=== PATIENT | female | born 1960 | race Caucasian/White ===

== ENCOUNTER 2021-09-29 00:23 | Inpatient (IN) ==
[2021-09-29] MEDS ORDERED: Naloxone 0.4 MG/ML INJ IVP PRN (07:27)
[2021-09-29 08:13] LABS: Nucleated Red Blood Cells 1.5 /100 WBC (0)
[2021-09-29 08:15] LABS: Hematocrit 24.2 % (35.3-44.9); Hemoglobin 7.8 g/dL (11.5-15.4); Mean Corpuscular HGB Conc 32.2 g/dL (31.6-35.5); Mean Corpuscular Hemoglobin 28.4 pg (28.0-33.3); Neutrophils # 0.3 K/mcL (1.6-8.9); Platelet Count 176 K/mcL (140-400); Red Blood Count 2.75 M/mcL (3.82-4.97); Red Cell Distribution Width 15.3 % (11.5-14.5); White Blood Count 1.4 K/mcL (4.3-11.1)
[2021-09-29 08:35] LABS: Alanine Aminotransferase 33 Units/L (7-52); Albumin 3.4 g/dL (3.5-5.7); Albumin/Globulin Ratio 1.2 (1.1-2.2); Alkaline Phosphatase 128 Units/L (34-104); Aspartate Amino Transferase 23 Units/L (13-39); BUN/Creatinine Ratio 10 (6-26); Bilirubin,Total 0.5 mg/dL (0.3-1.0); Blood Urea Nitrogen 7 mg/dL (8-23); Calcium 8.8 mg/dL (8.6-10.3); Carbon Dioxide 27 mEq/L (23-29); Chloride 101 mEq/L (98-107); Globulin 2.9 g/dL (2.4-3.5); Glucose 111 mg/dL (70-105); Magnesium 2.3 mg/dL (1.6-2.6); Osmolality,Calculated 281 (280-300); Phosphorous 2.4 mg/dL (2.7-4.5); Potassium 3.5 mEq/L (3.5-5.1); Sodium 136 mEq/L (136-145); Total Protein 6.3 g/dL (6.4-8.9); eGFR For African Americans > 60 (> 60); eGFR For Non-African Americans > 60 (> 60)
[2021-09-29 08:42] LABS: Eosinophils # 0.2 K/mcL (0.0-0.6); Lymphocytes # 0.5 K/mcL (0.6-4.6); Monocytes # 0.5 K/mcL (0.0-1.3)
[2021-09-29 08:43] LABS: Anisocytosis 1+ (Not Present); Platelet Estimate Normal (Normal)
[2021-09-29 08:44] LABS: Hypochromasia Present (Not Present)
[2021-09-29] MEDS: Cefepime HCl 1,000 MG in 0.9 % Sodium Chloride 10 ML IVP SCH ×3 (11:34→23:22)
[2021-09-29] MEDS: Budesonide/Formoterol 160/4.5 1 PUFF INH IH SCH ×2 (15:12→20:11)
[2021-09-29] MEDS: Ipratropium/Albuterol Neb 3 ML IH PRN (15:16)
[2021-09-29] MEDS ORDERED: Ondansetron ODT 4 MG TAB.RAPDIS PO PRN (18:22)
[2021-09-30] MEDS: *HR* Enoxaparin 40 MG/0.4 ML SYRINGE SQ SCH (05:29)
[2021-09-30 06:19] LABS: Bacteria,Urine Few per hpf (None-Few); Bilirubin,Urine Negative (Negative); Blood,Urine Negative (Negative); Clarity,Urine Clear (Clear); Color,Urine Yellow (Yellow); Glucose,Urine (UA) Normal (Normal); Ketones,Urine Trace mg/dL (Negative); Leukocyte Esterase,Urine Negative (Negative); Mucus,Urine Few per lpf (None-Few); Nitrite,Urine Negative (Negative); PH,Urine 6.5 pH Units (5.0-8.0); Protein,Urine 30 mg/dL (Neg-Trace); RBC,Urine 0-3 per hpf (0-3); Specific Gravity,Urine 1.017 (1.010-1.025); Squamous Epithelial Cell,Urine Few per hpf (None-Few); Urobilinogen,Urine Normal (Normal)
[2021-09-30] MEDS: Budesonide/Formoterol 160/4.5 1 PUFF INH IH SCH ×2 (07:54→19:55)
[2021-09-30] MEDS: Ipratropium/Albuterol Neb 3 ML IH PRN (07:55)
[2021-09-30] MEDS: allopurinoL 300 MG TABLET PO SCH (08:16)
[2021-09-30] MEDS: Cefepime HCl 1,000 MG in 0.9 % Sodium Chloride 10 ML IVP SCH (08:16)
[2021-09-30] MEDS ORDERED: Isovue-370 500 ML BOTTLE IVP ONE (08:23)
[2021-09-30 08:36] LABS: Basophils # 0.1 K/mcL (0.0-0.2); Hematocrit 25.6 % (35.3-44.9); Hemoglobin 8.2 g/dL (11.5-15.4); Mean Corpuscular Hemoglobin 28.5 pg (28.0-33.3); Mean Corpuscular Volume 88.9 fL (83.0-100.0); Mean Platelet Volume 11.5 fL (9.4-12.4); Nucleated Red Blood Cells 0.7 /100 WBC (0); Platelet Count 276 K/mcL (140-400); Red Blood Count 2.88 M/mcL (3.82-4.97); Red Cell Distribution Width 15.8 % (11.5-14.5)
[2021-09-30 08:38] LABS: White Blood Count 10.7 K/mcL (4.3-11.1)
[2021-09-30 08:55] LABS: BUN/Creatinine Ratio 13 (6-26); Blood Urea Nitrogen 10 mg/dL (8-23); Calcium 9.1 mg/dL (8.6-10.3); Carbon Dioxide 28 mEq/L (23-29); Chloride 99 mEq/L (98-107); Glucose 103 mg/dL (70-105); Osmolality,Calculated 279 (280-300); Potassium 3.4 mEq/L (3.5-5.1); Sodium 135 mEq/L (136-145); eGFR For African Americans > 60 (> 60); eGFR For Non-African Americans > 60 (> 60)
[2021-09-30 09:00] LABS: Eosinophils # 0.1 K/mcL (0.0-0.6); Lymphocytes # 0.9 K/mcL (0.6-4.6); Neutrophils # 8.2 K/mcL (1.6-8.9); Platelet Estimate Normal (Normal); Toxic Granulation Present (Not Present)
[2021-09-30] MEDS ORDERED: amLODIPine 5 MG TABLET PO SCH (09:00)
[2021-09-30] MEDS ORDERED: Cefepime HCl 1,000 MG in 0.9 % Sodium Chloride 10 ML IVP ONE (09:30)
[2021-09-30] MEDS: Cefepime HCl 2,000 MG in 0.9 % Sodium Chloride 10 ML IVP SCH ×2 (16:33→23:41)
[2021-10-01 03:15] LABS: Hematocrit 24.1 % (35.3-44.9); Hemoglobin 7.7 g/dL (11.5-15.4); Mean Corpuscular Hemoglobin 28.9 pg (28.0-33.3); Mean Corpuscular Volume 90.6 fL (83.0-100.0); Mean Platelet Volume 11.2 fL (9.4-12.4); Nucleated Red Blood Cells 1.1 /100 WBC (0); Platelet Count 329 K/mcL (140-400); Red Blood Count 2.66 M/mcL (3.82-4.97); Red Cell Distribution Width 16.2 % (11.5-14.5)
[2021-10-01 03:20] LABS: White Blood Count 17.8 K/mcL (4.3-11.1)
[2021-10-01 03:25] LABS: BUN/Creatinine Ratio 14 (6-26); Blood Urea Nitrogen 11 mg/dL (8-23); Calcium 8.9 mg/dL (8.6-10.3); Carbon Dioxide 27 mEq/L (23-29); Chloride 103 mEq/L (98-107); Glucose 113 mg/dL (70-105); Osmolality,Calculated 286 (280-300); Potassium 3.6 mEq/L (3.5-5.1); Sodium 138 mEq/L (136-145); eGFR For African Americans > 60 (> 60); eGFR For Non-African Americans > 60 (> 60)
[2021-10-01 04:08] LABS: Eosinophils # 0.4 K/mcL (0.0-0.6); Lymphocytes # 1.4 K/mcL (0.6-4.6); Monocytes # 1.4 K/mcL (0.0-1.3); Neutrophils # 14.6 K/mcL (1.6-8.9); Platelet Estimate Normal (Normal)
[2021-10-01] MEDS: *HR* Enoxaparin 40 MG/0.4 ML SYRINGE SQ SCH (04:58)
[2021-10-01] MEDS ORDERED: Acetaminophen 325 MG TABLET PO ONE (05:04)
[2021-10-01] MEDS: allopurinoL 300 MG TABLET PO SCH (08:33)
[2021-10-01] MEDS: Cefepime HCl 2,000 MG in 0.9 % Sodium Chloride 10 ML IVP SCH ×2 (08:33→16:26)
[2021-10-01] MEDS: Budesonide/Formoterol 160/4.5 1 PUFF INH IH SCH ×2 (10:14→19:36)
[2021-10-01] MEDS: Ipratropium/Albuterol Neb 3 ML IH PRN (19:35)
[2021-10-02] MEDS: Cefepime HCl 2,000 MG in 0.9 % Sodium Chloride 10 ML IVP SCH ×2 (00:05→07:53)
[2021-10-02] MEDS: *HR* Enoxaparin 40 MG/0.4 ML SYRINGE SQ SCH (06:10)
[2021-10-02 07:40] LABS: Hematocrit 23.5 % (35.3-44.9); Hemoglobin 7.3 g/dL (11.5-15.4); Mean Corpuscular HGB Conc 31.1 g/dL (31.6-35.5); Mean Corpuscular Hemoglobin 28.2 pg (28.0-33.3); Mean Corpuscular Volume 90.7 fL (83.0-100.0); Mean Platelet Volume 10.9 fL (9.4-12.4); Nucleated Red Blood Cells 1.4 /100 WBC (0); Platelet Count 390 K/mcL (140-400); Red Blood Count 2.59 M/mcL (3.82-4.97); Red Cell Distribution Width 16.7 % (11.5-14.5); White Blood Count 12.2 K/mcL (4.3-11.1)
[2021-10-02] MEDS: allopurinoL 300 MG TABLET PO SCH (07:54)
[2021-10-02 08:09] LABS: BUN/Creatinine Ratio 16 (6-26); Blood Urea Nitrogen 10 mg/dL (8-23); Calcium 8.6 mg/dL (8.6-10.3); Carbon Dioxide 30 mEq/L (23-29); Chloride 102 mEq/L (98-107); Glucose 91 mg/dL (70-105); Osmolality,Calculated 285 (280-300); Potassium 3.4 mEq/L (3.5-5.1); Sodium 138 mEq/L (136-145); eGFR For African Americans > 60 (> 60); eGFR For Non-African Americans > 60 (> 60)
[2021-10-02 08:36] LABS: Monocytes # 1.5 K/mcL (0.0-1.3); Neutrophils # 9.8 K/mcL (1.6-8.9)
[2021-10-02 08:37] LABS: Hypochromasia Present (Not Present)
[2021-10-02 08:38] LABS: Anisocytosis 1+ (Not Present); Poikilocytosis 1+ (Not Present)
[2021-10-02] MEDS: Budesonide/Formoterol 160/4.5 1 PUFF INH IH SCH (10:50)
[2021-10-02] MEDS: Ipratropium/Albuterol Neb 3 ML IH PRN (10:50)
[2021-10-02] MEDS ORDERED: cefTRIAXone 1,000 MG in 0.9 % Sodium Chloride 10 ML IVP SCH (14:00)
[2021-10-02 19:14] VITALS: BP 110/75; PULSE 112; TEMP 99.2; O2SAT 97
== END 2021-10-02 19:18 | disposition home or self-care (01) | DRG 872 ==
LOC: 3ANU → SUATTDRO 07:11
PROVIDERS: ADMIT Internal Medicine; ATTEND Student in an Organized Health Care Education/Training Program

== ENCOUNTER 2021-10-25 03:08 | Observation (INO) ==
[2021-10-25] MEDS ORDERED: Naloxone 0.4 MG/ML INJ IVP PRN (03:34)
[2021-10-25] MEDS ORDERED: Ondansetron ODT 4 MG TAB.RAPDIS SL PRN (03:34)
[2021-10-25] MEDS ORDERED: Melatonin 3 MG TABLET PO PRN (03:34)
[2021-10-25] MEDS ORDERED: Ipratropium/Albuterol Neb 3 ML IH PRN (03:53)
[2021-10-25] MEDS ORDERED: Albuterol 2.5 MG/3 ML NEBULIZER IH PRN (03:54)
[2021-10-25 07:26] LABS: Hematocrit 22.4 % (35.3-44.9); Hemoglobin 6.7 g/dL (11.5-15.4); Mean Corpuscular HGB Conc 29.9 g/dL (31.6-35.5); Mean Corpuscular Hemoglobin 29.1 pg (28.0-33.3); Mean Platelet Volume 9.9 fL (9.4-12.4); Nucleated Red Blood Cells 0.2 /100 WBC (0); Platelet Count 540 K/mcL (140-400); Red Cell Distribution Width 20.9 % (11.5-14.5)
[2021-10-25 07:44] LABS: Alanine Aminotransferase 20 Units/L (7-52); Albumin 3.5 g/dL (3.5-5.7); Albumin/Globulin Ratio 1.3 (1.1-2.2); Alkaline Phosphatase 89 Units/L (34-104); Aspartate Amino Transferase 14 Units/L (13-39); BUN/Creatinine Ratio 10 (6-26); Bilirubin,Total 0.2 mg/dL (0.3-1.0); Blood Urea Nitrogen 8 mg/dL (8-23); Carbon Dioxide 28 mEq/L (23-29); Chloride 102 mEq/L (98-107); Globulin 2.7 g/dL (2.4-3.5); Glucose 221 mg/dL (70-105); Osmolality,Calculated 291 (280-300); Potassium 4.3 mEq/L (3.5-5.1); Sodium 138 mEq/L (136-145); Total Protein 6.2 g/dL (6.4-8.9); eGFR For African Americans > 60 (> 60); eGFR For Non-African Americans > 60 (> 60)
[2021-10-25 07:45] LABS: Mean Corpuscular Volume 97.4 fL (83.0-100.0)
[2021-10-25] MEDS: predniSONE 20 MG TABLET PO SCH (09:42)
[2021-10-25 10:01] LABS: Anisocytosis 2+ (Not Present); Lymphocytes # 0.3 K/mcL (0.6-4.6); Macrocytosis Present (Not Present); Neutrophils # 12.7 K/mcL (1.6-8.9)
[2021-10-25 10:02] LABS: Large Platelets Present (Not Present); Poikilocytosis 1+ (Not Present); Polychromasia 1+ (Not Present)
[2021-10-25] MEDS ORDERED: *HR* Enoxaparin 40 MG/0.4 ML SYRINGE SQ ONE (11:00)
[2021-10-25 11:16] LABS: Hematocrit 22.3 % (35.3-44.9); Hemoglobin 6.8 g/dL (11.5-15.4)
[2021-10-25 11:27] LABS: INR 1.2; Prothrombin Time 13.3 Seconds (9.4-12.1)
[2021-10-25] MEDS ORDERED: 0.9 % Sodium Chloride 500 ML ONE (12:38)
[2021-10-25] MEDS: Budesonide/Formoterol 160/4.5 1 PUFF INH IH SCH (20:32)
[2021-10-25] MEDS: Acyclovir 200 MG CAPSULE PO SCH (21:50)
[2021-10-26 05:58] LABS: Hematocrit 27.3 % (35.3-44.9); Mean Corpuscular HGB Conc 31.5 g/dL (31.6-35.5); Mean Corpuscular Hemoglobin 28.4 pg (28.0-33.3); Mean Platelet Volume 9.7 fL (9.4-12.4); Platelet Count 549 K/mcL (140-400); Red Blood Count 3.03 M/mcL (3.82-4.97); Red Cell Distribution Width 23.1 % (11.5-14.5); White Blood Count 14.4 K/mcL (4.3-11.1)
[2021-10-26 06:00] LABS: Hemoglobin 8.6 g/dL (11.5-15.4); Mean Corpuscular Volume 90.1 fL (83.0-100.0)
[2021-10-26] MEDS: *HR* Enoxaparin 40 MG/0.4 ML SYRINGE SQ SCH (06:08)
[2021-10-26 06:14] LABS: BUN/Creatinine Ratio 23 (6-26); Blood Urea Nitrogen 18 mg/dL (8-23); Calcium 9.4 mg/dL (8.6-10.3); Carbon Dioxide 33 mEq/L (23-29); Chloride 103 mEq/L (98-107); Glucose 122 mg/dL (70-105); Magnesium 2.3 mg/dL (1.6-2.6); Osmolality,Calculated 291 (280-300); Potassium 4.5 mEq/L (3.5-5.1); Sodium 139 mEq/L (136-145); eGFR For African Americans > 60 (> 60); eGFR For Non-African Americans > 60 (> 60)
[2021-10-26 06:20] LABS: % Iron Saturation 12 % (15-50); Iron 30 mcg/dL (50-170); Transferrin 180 mg/dL (203-362)
[2021-10-26 06:38] LABS: Ferritin 163 ng/mL (10-120)
[2021-10-26 06:43] LABS: Folate 6.5 ng/mL (3.0-16.0)
[2021-10-26] MEDS ORDERED: Iron Sucrose Complex 400 MG in 0.9 % Sodium Chloride 250 ML IVPB ONE (08:22)
[2021-10-26] MEDS: Acyclovir 200 MG CAPSULE PO SCH ×2 (08:37→19:48)
[2021-10-26] MEDS: predniSONE 20 MG TABLET PO SCH (08:37)
[2021-10-26] MEDS: Budesonide/Formoterol 160/4.5 1 PUFF INH IH SCH ×2 (08:37→20:12)
[2021-10-26] MEDS ORDERED: MethylPREDNISolone 40 MG/ML VIAL IVP ONE (11:09)
[2021-10-26] MEDS: Ipratropium/Albuterol Neb 3 ML IH SCH ×4 (15:36→23:40)
[2021-10-27] MEDS: Ipratropium/Albuterol Neb 3 ML IH SCH ×5 (04:15→20:17)
[2021-10-27] MEDS: *HR* Enoxaparin 40 MG/0.4 ML SYRINGE SQ SCH (05:49)
[2021-10-27 05:56] LABS: Basophils # 0.1 K/mcL (0.0-0.2); Basophils % 0.3 %; Hematocrit 30.7 % (35.3-44.9); Hemoglobin 9.4 g/dL (11.5-15.4); Immature Granulocytes % 2.2 % (0-4); Lymphocytes # 0.5 K/mcL (0.6-4.6); Lymphocytes % 2.3 %; Mean Corpuscular HGB Conc 30.6 g/dL (31.6-35.5); Mean Corpuscular Hemoglobin 28.4 pg (28.0-33.3); Mean Corpuscular Volume 92.7 fL (83.0-100.0); Mean Platelet Volume 9.4 fL (9.4-12.4); Monocytes # 1.7 K/mcL (0.0-1.3); Monocytes % 7.5 %; Nucleated Red Blood Cells 0.1 /100 WBC (0); Platelet Count 611 K/mcL (140-400); Red Blood Count 3.31 M/mcL (3.82-4.97); Red Cell Distribution Width 22.7 % (11.5-14.5); Segmented Neutrophils % 87.7 %
[2021-10-27 05:57] LABS: Neutrophils # 20.2 K/mcL (1.6-8.9)
[2021-10-27] MEDS: Budesonide/Formoterol 160/4.5 1 PUFF INH IH SCH ×2 (07:18→20:17)
[2021-10-27] MEDS: predniSONE 20 MG TABLET PO SCH (08:56)
[2021-10-27] MEDS: Acyclovir 200 MG CAPSULE PO SCH ×2 (08:56→20:31)
[2021-10-28] MEDS: Ipratropium/Albuterol Neb 3 ML IH SCH ×4 (00:11→11:22)
[2021-10-28] MEDS: *HR* Enoxaparin 40 MG/0.4 ML SYRINGE SQ SCH (06:36)
[2021-10-28] MEDS: Budesonide/Formoterol 160/4.5 1 PUFF INH IH SCH (07:16)
[2021-10-28 07:41] VITALS: BP 155/84; PULSE 114; TEMP 97.7; O2SAT 99
[2021-10-28] MEDS: predniSONE 20 MG TABLET PO SCH (09:35)
[2021-10-28] MEDS: Acyclovir 200 MG CAPSULE PO SCH (09:35)
== END 2021-10-28 12:32 | disposition home or self-care (01) ==
LOC: 3BNU → SUATTDRO 03:08
PROVIDERS: ADMIT Internal Medicine; ATTEND Internal Medicine

== ENCOUNTER 2021-11-12 15:14 | Inpatient (IN) ==
[2021-11-12] MEDS ORDERED: Naloxone 0.4 MG/ML INJ IVP PRN (19:19)
[2021-11-12] MEDS ORDERED: Albuterol 2.5 MG/3 ML NEBULIZER IH PRN (20:01)
[2021-11-12] MEDS: Budesonide/Formoterol 80/4.5 1 PUFF INH IH SCH (20:26)
[2021-11-12 20:28] LABS: Basophils % 2.3 %; Eosinophils % 9.3 %; Hematocrit 26.4 % (35.3-44.9); Hemoglobin 8.3 g/dL (11.5-15.4); Lymphocytes # 0.1 K/mcL (0.6-4.6); Mean Corpuscular HGB Conc 31.4 g/dL (31.6-35.5); Mean Corpuscular Hemoglobin 29.6 pg (28.0-33.3); Mean Corpuscular Volume 94.3 fL (83.0-100.0); Mean Platelet Volume 12.4 fL (9.4-12.4); Monocytes % 34.9 %; Neutrophils # 0.2 K/mcL (1.6-8.9); Red Cell Distribution Width 19.6 % (11.5-14.5); Segmented Neutrophils % 39.5 %
[2021-11-12 20:32] LABS: INR 1.3; Prothrombin Time 14.8 Seconds (9.4-12.1)
[2021-11-12 20:38] LABS: VBG HCO3 30 mEq/L (21-27); VBG PCO2 52 mmHg (41-51); VBG PH 7.36 pH Units (7.32-7.42); VBG PO2 142 mmHg (25-50)
[2021-11-12 20:43] LABS: Alanine Aminotransferase 10 Units/L (7-52); Albumin 3.1 g/dL (3.5-5.7); Alkaline Phosphatase 90 Units/L (34-104); Aspartate Amino Transferase 7 Units/L (13-39); BUN/Creatinine Ratio 18 (6-26); Bilirubin,Total 0.8 mg/dL (0.3-1.0); Blood Urea Nitrogen 11 mg/dL (8-23); Calcium 8.9 mg/dL (8.6-10.3); Carbon Dioxide 30 mEq/L (23-29); Chloride 96 mEq/L (98-107); Glucose 108 mg/dL (70-105); Osmolality,Calculated 278 (280-300); Potassium 4.1 mEq/L (3.5-5.1); Sodium 134 mEq/L (136-145); Total Protein 6.1 g/dL (6.4-8.9); eGFR For African Americans > 60 (> 60); eGFR For Non-African Americans > 60 (> 60)
[2021-11-12 20:56] LABS: Troponin I 0.07 ng/mL (< 0.04)
[2021-11-12 21:02] LABS: Monocytes # 0.1 K/mcL (0.0-1.3); White Blood Count 0.4 K/mcL (4.3-11.1)
[2021-11-12 21:03] LABS: Platelet Count 49 K/mcL (140-400)
[2021-11-12 21:07] LABS: Platelet Estimate Decreased (Normal)
[2021-11-12] MEDS: Cefepime HCl 2,000 MG in 0.9 % Sodium Chloride 10 ML IVP SCH (22:07)
[2021-11-12] MEDS ORDERED: Perflutren Lipid Microsphere 1.3 ML in 0.9 % Sodium Chloride 8.7 ML IVP PRN (22:23)
[2021-11-13] MEDS: Cefepime HCl 2,000 MG in 0.9 % Sodium Chloride 10 ML IVP SCH ×3 (06:49→23:59)
[2021-11-13] MEDS: Budesonide/Formoterol 80/4.5 1 PUFF INH IH SCH ×2 (07:56→22:13)
[2021-11-13] MEDS: Acetaminophen 325 MG TABLET PO PRN (09:16)
[2021-11-13] MEDS: MethylPREDNISolone 40 MG/ML VIAL IVP SCH ×2 (12:08→20:06)
[2021-11-13] MEDS: Ipratropium/Albuterol Neb 3 ML IH SCH ×3 (14:05→22:13)
[2021-11-14] MEDS: Ipratropium/Albuterol Neb 3 ML IH SCH ×4 (03:48→21:57)
[2021-11-14 04:36] LABS: Red Cell Distribution Width 19.4 % (11.5-14.5)
[2021-11-14 04:38] LABS: Hematocrit 26.9 % (35.3-44.9); Immature Platelets 9.8 % (1.1-6.1); Mean Corpuscular HGB Conc 29.7 g/dL (31.6-35.5); Mean Corpuscular Hemoglobin 29.3 pg (28.0-33.3); Mean Corpuscular Volume 98.5 fL (83.0-100.0); Mean Platelet Volume 11.8 fL (9.4-12.4); Red Blood Count 2.73 M/mcL (3.82-4.97); White Blood Count 3.2 K/mcL (4.3-11.1)
[2021-11-14 04:48] LABS: Platelet Count 84 K/mcL (140-400)
[2021-11-14 04:52] LABS: BUN/Creatinine Ratio 33 (6-26); Blood Urea Nitrogen 16 mg/dL (8-23); Calcium 8.9 mg/dL (8.6-10.3); Carbon Dioxide 31 mEq/L (23-29); Chloride 102 mEq/L (98-107); Glucose 157 mg/dL (70-105); Osmolality,Calculated 292 (280-300); Potassium 4.1 mEq/L (3.5-5.1); Sodium 139 mEq/L (136-145); eGFR For African Americans > 60 (> 60); eGFR For Non-African Americans > 60 (> 60)
[2021-11-14 05:07] LABS: Dohle Bodies Present (Not Present); Monocytes # 0.3 K/mcL (0.0-1.3); Neutrophils # 2.9 K/mcL (1.6-8.9); Platelet Estimate Decreased (Normal)
[2021-11-14] MEDS: Cefepime HCl 2,000 MG in 0.9 % Sodium Chloride 10 ML IVP SCH ×3 (06:39→23:46)
[2021-11-14] MEDS: Acyclovir 200 MG CAPSULE PO SCH ×2 (09:37→20:55)
[2021-11-14] MEDS: allopurinoL 300 MG TABLET PO SCH (09:37)
[2021-11-14] MEDS: MethylPREDNISolone 40 MG/ML VIAL IVP SCH ×2 (09:37→20:56)
[2021-11-14] MEDS: Budesonide/Formoterol 80/4.5 1 PUFF INH IH SCH ×2 (10:57→21:57)
[2021-11-14 11:26] LABS: Bacteria,Urine Few per hpf (None-Few); Bilirubin,Urine Negative (Negative); Blood,Urine Negative (Negative); Clarity,Urine Clear (Clear); Color,Urine Light-Yellow (Yellow); Glucose,Urine (UA) Normal (Normal); Hyaline Casts,Urine Moderate per lpf (None Seen); Ketones,Urine Negative (Negative); Leukocyte Esterase,Urine Negative (Negative); Mucus,Urine Few per lpf (None-Few); Nitrite,Urine Negative (Negative); PH,Urine 6.5 pH Units (5.0-8.0); Protein,Urine 30 mg/dL (Neg-Trace); RBC,Urine 0-3 per hpf (0-3); Specific Gravity,Urine 1.024 (1.010-1.025); Squamous Epithelial Cell,Urine Few per hpf (None-Few); Urobilinogen,Urine Normal (Normal); WBC,Urine 0-3 per hpf (0-3)
[2021-11-14] MEDS: Acetaminophen 325 MG TABLET PO PRN (18:06)
[2021-11-14] MEDS: Nystatin Cream 15 GM TUBE TP SCH (20:55)
[2021-11-15 00:46] LABS: Hematocrit 27.1 % (35.3-44.9); Mean Corpuscular HGB Conc 29.5 g/dL (31.6-35.5); Mean Corpuscular Hemoglobin 29.3 pg (28.0-33.3); Mean Corpuscular Volume 99.3 fL (83.0-100.0); Mean Platelet Volume 11.4 fL (9.4-12.4); Platelet Count 121 K/mcL (140-400); Red Blood Count 2.73 M/mcL (3.82-4.97); Red Cell Distribution Width 19.7 % (11.5-14.5)
[2021-11-15 00:53] LABS: White Blood Count 6.2 K/mcL (4.3-11.1)
[2021-11-15 01:05] LABS: BUN/Creatinine Ratio 23 (6-26); Blood Urea Nitrogen 16 mg/dL (8-23); Calcium 9.5 mg/dL (8.6-10.3); Carbon Dioxide 33 mEq/L (23-29); Chloride 103 mEq/L (98-107); Glucose 157 mg/dL (70-105); Osmolality,Calculated 300 (280-300); Potassium 4.2 mEq/L (3.5-5.1); Sodium 143 mEq/L (136-145); eGFR For African Americans > 60 (> 60); eGFR For Non-African Americans > 60 (> 60)
[2021-11-15 01:33] LABS: Eosinophils # 0.3 K/mcL (0.0-0.6); Lymphocytes # 0.4 K/mcL (0.6-4.6); Monocytes # 0.5 K/mcL (0.0-1.3); Neutrophils # 5.1 K/mcL (1.6-8.9)
[2021-11-15] MEDS: Ipratropium/Albuterol Neb 3 ML IH SCH ×4 (03:36→22:49)
[2021-11-15] MEDS: Cefepime HCl 2,000 MG in 0.9 % Sodium Chloride 10 ML IVP SCH ×3 (06:22→22:12)
[2021-11-15] MEDS: Acetaminophen 325 MG TABLET PO PRN ×2 (06:37→22:11)
[2021-11-15] MEDS: allopurinoL 300 MG TABLET PO SCH (08:42)
[2021-11-15] MEDS: Acyclovir 200 MG CAPSULE PO SCH ×2 (08:42→22:11)
[2021-11-15] MEDS: MethylPREDNISolone 40 MG/ML VIAL IVP SCH (08:43)
[2021-11-15] MEDS: Nystatin Cream 15 GM TUBE TP SCH ×2 (09:00→22:13)
[2021-11-15] MEDS: Budesonide/Formoterol 80/4.5 1 PUFF INH IH SCH ×2 (10:14→22:49)
[2021-11-16] MEDS: Ipratropium/Albuterol Neb 3 ML IH SCH ×4 (04:07→22:31)
[2021-11-16] MEDS: Cefepime HCl 2,000 MG in 0.9 % Sodium Chloride 10 ML IVP SCH ×3 (06:05→23:47)
[2021-11-16] MEDS: Nystatin Cream 15 GM TUBE TP SCH ×2 (07:59→19:54)
[2021-11-16] MEDS: predniSONE 20 MG TABLET PO SCH (07:59)
[2021-11-16] MEDS: Acyclovir 200 MG CAPSULE PO SCH ×2 (07:59→19:46)
[2021-11-16] MEDS: allopurinoL 300 MG TABLET PO SCH (07:59)
[2021-11-16 08:28] LABS: Eosinophils # 0.1 K/mcL (0.0-0.6); Hematocrit 31.2 % (35.3-44.9); Hemoglobin 9.4 g/dL (11.5-15.4); Mean Corpuscular HGB Conc 30.1 g/dL (31.6-35.5); Mean Corpuscular Hemoglobin 29.6 pg (28.0-33.3); Mean Corpuscular Volume 98.1 fL (83.0-100.0); Mean Platelet Volume 10.5 fL (9.4-12.4); Nucleated Red Blood Cells 4.6 /100 WBC (0); Platelet Count 148 K/mcL (140-400); Red Blood Count 3.18 M/mcL (3.82-4.97); Red Cell Distribution Width 20.1 % (11.5-14.5)
[2021-11-16 08:47] LABS: BUN/Creatinine Ratio 41 (6-26); Blood Urea Nitrogen 24 mg/dL (8-23); Calcium 10.1 mg/dL (8.6-10.3); Carbon Dioxide 37 mEq/L (23-29); Chloride 96 mEq/L (98-107); Glucose 91 mg/dL (70-105); Osmolality,Calculated 292 (280-300); Sodium 139 mEq/L (136-145); eGFR For African Americans > 60 (> 60); eGFR For Non-African Americans > 60 (> 60)
[2021-11-16] MEDS ORDERED: predniSONE 20 MG TABLET PO SCH (09:00)
[2021-11-16] MEDS: Acetaminophen 325 MG TABLET PO PRN (09:06)
[2021-11-16 09:08] LABS: Lymphocytes # 0.1 K/mcL (0.6-4.6); Monocytes # 1.8 K/mcL (0.0-1.3)
[2021-11-16 09:09] LABS: Toxic Granulation Present (Not Present)
[2021-11-16] MEDS ORDERED: Benzonatate 100 MG CAPSULE PO PRN (09:09)
[2021-11-16 09:10] LABS: Polychromasia 1+ (Not Present)
[2021-11-16 09:11] LABS: Anisocytosis 2+ (Not Present); Platelet Estimate Normal (Normal); Poikilocytosis 1+ (Not Present)
[2021-11-16 10:33] LABS: Adenovirus Not Detected (Not Detect); Bordetella Pertussis Not Detected (Not Detect); Chlamydophila pneumoniae Not Detected (Not Detect); Coronavirus 229E Not Detected (Not Detect); Coronavirus HKU1 Not Detected (Not Detect); Coronavirus NL63 Not Detected (Not Detect); Coronavirus OC43 Not Detected (Not Detect); Human Metapneumovirus Not Detected (Not Detect); Human Rhinovirus/Enterovirus Not Detected (Not Detect); Influenza A Subtype 2009 H1 Not Detected (Not Detect); Influenza B Not Detected (Not Detect); Mycoplasma pneumoniae Not Detected (Not Detect); Parainfluenza Virus 1 Not Detected (Not Detect); Parainfluenza Virus 2 Not Detected (Not Detect); Parainfluenza Virus 3 Not Detected (Not Detect); Parainfluenza Virus 4 Not Detected (Not Detect); Respiratory Syncytial Virus Not Detected (Not Detect); SARS-CoV-2 Not Detected (Not Detect)
[2021-11-16] MEDS: Budesonide/Formoterol 80/4.5 1 PUFF INH IH SCH ×2 (10:42→22:31)
[2021-11-17] MEDS: Ipratropium/Albuterol Neb 3 ML IH SCH ×4 (03:41→22:09)
[2021-11-17] MEDS: Cefepime HCl 2,000 MG in 0.9 % Sodium Chloride 10 ML IVP SCH ×3 (06:14→22:56)
[2021-11-17] MEDS: Acetaminophen 325 MG TABLET PO PRN ×3 (06:20→20:29)
[2021-11-17] MEDS ORDERED: Ipratropium/Albuterol Neb 3 ML IH PRN (09:19)
[2021-11-17] MEDS: Budesonide/Formoterol 80/4.5 1 PUFF INH IH SCH ×2 (09:26→22:09)
[2021-11-17] MEDS: Acyclovir 200 MG CAPSULE PO SCH ×2 (09:52→20:29)
[2021-11-17] MEDS: Nystatin Cream 15 GM TUBE TP SCH ×2 (10:07→20:30)
[2021-11-17] MEDS: allopurinoL 300 MG TABLET PO SCH (10:07)
[2021-11-17] MEDS: Ondansetron ODT 4 MG TAB.RAPDIS SL PRN (10:07)
[2021-11-17] MEDS: Azithromycin 500 MG in 0.9 % Sodium Chloride 250 ML IVPB SCH (10:08)
[2021-11-17] MEDS: predniSONE 20 MG TABLET PO SCH (10:11)
[2021-11-17 13:30] LABS: Hemoglobin 9.2 g/dL (11.5-15.4); Mean Corpuscular HGB Conc 29.7 g/dL (31.6-35.5); Mean Corpuscular Hemoglobin 29.5 pg (28.0-33.3); Mean Corpuscular Volume 99.4 fL (83.0-100.0); Mean Platelet Volume 11.3 fL (9.4-12.4); Platelet Count 156 K/mcL (140-400); Red Blood Count 3.12 M/mcL (3.82-4.97); Red Cell Distribution Width 20.8 % (11.5-14.5); White Blood Count 13.3 K/mcL (4.3-11.1)
[2021-11-17 14:07] LABS: Monocytes # 1.6 K/mcL (0.0-1.3)
[2021-11-17 14:09] LABS: Anisocytosis 2+ (Not Present); Hypochromasia Present (Not Present); Lymphocytes # 0.1 K/mcL (0.6-4.6); Neutrophils # 10.4 K/mcL (1.6-8.9); Platelet Estimate Normal (Normal); Polychromasia 1+ (Not Present); Toxic Granulation Present (Not Present)
[2021-11-17 14:28] LABS: BUN/Creatinine Ratio 32 (6-26); Blood Urea Nitrogen 21 mg/dL (8-23); Calcium 9.6 mg/dL (8.6-10.3); Carbon Dioxide 32 mEq/L (23-29); Chloride 97 mEq/L (98-107); Glucose 110 mg/dL (70-105); Osmolality,Calculated 292 (280-300); Potassium 4.2 mEq/L (3.5-5.1); Sodium 139 mEq/L (136-145); eGFR For African Americans > 60 (> 60); eGFR For Non-African Americans > 60 (> 60)
[2021-11-17] MEDS: MethylPREDNISolone 40 MG/ML VIAL IVP SCH (16:45)
[2021-11-17] MEDS: Melatonin 3 MG TABLET PO PRN (20:29)
[2021-11-18] MEDS: Ipratropium/Albuterol Neb 3 ML IH SCH ×4 (03:31→21:34)
[2021-11-18 03:52] LABS: Hematocrit 30.4 % (35.3-44.9); Hemoglobin 9.2 g/dL (11.5-15.4); Mean Corpuscular HGB Conc 30.3 g/dL (31.6-35.5); Mean Corpuscular Hemoglobin 29.3 pg (28.0-33.3); Mean Corpuscular Volume 96.8 fL (83.0-100.0); Mean Platelet Volume 11.6 fL (9.4-12.4); Nucleated Red Blood Cells 1.6 /100 WBC (0); Platelet Count 184 K/mcL (140-400); Red Blood Count 3.14 M/mcL (3.82-4.97); Red Cell Distribution Width 20.3 % (11.5-14.5); White Blood Count 13.5 K/mcL (4.3-11.1)
[2021-11-18 04:09] LABS: BUN/Creatinine Ratio 36 (6-26); Blood Urea Nitrogen 21 mg/dL (8-23); Calcium 9.8 mg/dL (8.6-10.3); Carbon Dioxide 37 mEq/L (23-29); Chloride 94 mEq/L (98-107); Glucose 115 mg/dL (70-105); Osmolality,Calculated 288 (280-300); Potassium 4.9 mEq/L (3.5-5.1); Sodium 137 mEq/L (136-145); eGFR For African Americans > 60 (> 60); eGFR For Non-African Americans > 60 (> 60)
[2021-11-18 04:17] LABS: Anisocytosis 3+ (Not Present); Lymphocytes # 0.8 K/mcL (0.6-4.6); Macrocytosis Present (Not Present); Monocytes # 0.3 K/mcL (0.0-1.3); Neutrophils # 11.6 K/mcL (1.6-8.9); Platelet Estimate Normal (Normal)
[2021-11-18] MEDS: MethylPREDNISolone 40 MG/ML VIAL IVP SCH ×2 (06:19→15:59)
[2021-11-18] MEDS: Cefepime HCl 2,000 MG in 0.9 % Sodium Chloride 10 ML IVP SCH ×3 (06:20→23:27)
[2021-11-18] MEDS: Acyclovir 200 MG CAPSULE PO SCH ×2 (09:14→21:00)
[2021-11-18] MEDS: Nystatin Cream 15 GM TUBE TP SCH ×2 (09:14→21:00)
[2021-11-18] MEDS: allopurinoL 300 MG TABLET PO SCH (09:14)
[2021-11-18] MEDS: Azithromycin 500 MG in 0.9 % Sodium Chloride 250 ML IVPB SCH (09:20)
[2021-11-18] MEDS: Budesonide/Formoterol 80/4.5 1 PUFF INH IH SCH ×2 (09:33→21:35)
[2021-11-18] MEDS ORDERED: Milk and Molasses Enema 200 ML RC ONE (14:03)
[2021-11-18] MEDS: Melatonin 3 MG TABLET PO PRN (21:00)
[2021-11-18] MEDS: Acetaminophen 325 MG TABLET PO PRN (21:00)
[2021-11-19] MEDS: Ipratropium/Albuterol Neb 3 ML IH SCH ×4 (03:55→22:30)
[2021-11-19 04:36] LABS: Mean Corpuscular Hemoglobin 29.5 pg (28.0-33.3); Nucleated Red Blood Cells 1.2 /100 WBC (0)
[2021-11-19 04:39] LABS: Hematocrit 30.2 % (35.3-44.9); Hemoglobin 8.9 g/dL (11.5-15.4); Immature Platelets 8.9 % (1.1-6.1); Mean Corpuscular HGB Conc 29.5 g/dL (31.6-35.5); Mean Platelet Volume 11.2 fL (9.4-12.4); Platelet Count 171 K/mcL (140-400); Red Blood Count 3.02 M/mcL (3.82-4.97); Red Cell Distribution Width 20.9 % (11.5-14.5); White Blood Count 13.1 K/mcL (4.3-11.1)
[2021-11-19 04:43] LABS: BUN/Creatinine Ratio 39 (6-26); Blood Urea Nitrogen 21 mg/dL (8-23); Calcium 9.7 mg/dL (8.6-10.3); Carbon Dioxide 38 mEq/L (23-29); Chloride 96 mEq/L (98-107); Glucose 101 mg/dL (70-105); Magnesium 2.1 mg/dL (1.6-2.6); Osmolality,Calculated 291 (280-300); Potassium 5.1 mEq/L (3.5-5.1); Sodium 139 mEq/L (136-145); eGFR For African Americans > 60 (> 60); eGFR For Non-African Americans > 60 (> 60)
[2021-11-19 05:39] LABS: Lymphocytes # 0.5 K/mcL (0.6-4.6); Monocytes # 0.8 K/mcL (0.0-1.3); Neutrophils # 11.3 K/mcL (1.6-8.9)
[2021-11-19 05:40] LABS: Platelet Estimate Normal (Normal)
[2021-11-19] MEDS: MethylPREDNISolone 40 MG/ML VIAL IVP SCH ×2 (06:14→17:08)
[2021-11-19] MEDS: Cefepime HCl 2,000 MG in 0.9 % Sodium Chloride 10 ML IVP SCH ×3 (06:14→22:35)
[2021-11-19] MEDS: Azithromycin 500 MG in 0.9 % Sodium Chloride 250 ML IVPB SCH (08:43)
[2021-11-19] MEDS: Acyclovir 200 MG CAPSULE PO SCH ×2 (08:43→19:38)
[2021-11-19] MEDS: allopurinoL 300 MG TABLET PO SCH (08:43)
[2021-11-19] MEDS: Nystatin Cream 15 GM TUBE TP SCH ×2 (08:44→20:35)
[2021-11-19] MEDS: Budesonide/Formoterol 80/4.5 1 PUFF INH IH SCH ×2 (10:33→22:30)
[2021-11-19] MEDS ORDERED: *HR* Alteplase (Cathflo) 2 MG VIAL IVP ONE (16:29)
[2021-11-19] MEDS: Acetaminophen 325 MG TABLET PO PRN (21:13)
[2021-11-19] MEDS: Melatonin 3 MG TABLET PO PRN (21:13)
[2021-11-20] MEDS: Ipratropium/Albuterol Neb 3 ML IH SCH ×4 (03:38→21:10)
[2021-11-20 04:29] LABS: Hematocrit 31.7 % (35.3-44.9); Hemoglobin 9.4 g/dL (11.5-15.4); Mean Corpuscular HGB Conc 29.7 g/dL (31.6-35.5); Mean Corpuscular Volume 101.3 fL (83.0-100.0); Mean Platelet Volume 10.5 fL (9.4-12.4); Nucleated Red Blood Cells 0.6 /100 WBC (0); Platelet Count 236 K/mcL (140-400); Red Blood Count 3.13 M/mcL (3.82-4.97); White Blood Count 15.7 K/mcL (4.3-11.1)
[2021-11-20 04:45] LABS: BUN/Creatinine Ratio 42 (6-26); Blood Urea Nitrogen 22 mg/dL (8-23); Calcium 9.6 mg/dL (8.6-10.3); Carbon Dioxide 38 mEq/L (23-29); Chloride 96 mEq/L (98-107); Glucose 118 mg/dL (70-105); Magnesium 2.3 mg/dL (1.6-2.6); Osmolality,Calculated 288 (280-300); Sodium 137 mEq/L (136-145); eGFR For African Americans > 60 (> 60); eGFR For Non-African Americans > 60 (> 60)
[2021-11-20 04:59] LABS: Triiodothyronine (T3) Free 2.54 pg/mL (2.50-3.90)
[2021-11-20 05:13] LABS: Anisocytosis 2+ (Not Present); Lymphocytes # 0.3 K/mcL (0.6-4.6); Macrocytosis Present (Not Present); Monocytes # 0.6 K/mcL (0.0-1.3); Neutrophils # 13.5 K/mcL (1.6-8.9); Platelet Estimate Normal (Normal); Polychromasia 1+ (Not Present); Smudge Cells Present (Not Present)
[2021-11-20] MEDS: Cefepime HCl 2,000 MG in 0.9 % Sodium Chloride 10 ML IVP SCH (06:00)
[2021-11-20] MEDS: MethylPREDNISolone 40 MG/ML VIAL IVP SCH ×2 (06:00→17:25)
[2021-11-20] MEDS: Ondansetron ODT 4 MG TAB.RAPDIS SL PRN (06:08)
[2021-11-20] MEDS: Nystatin Cream 15 GM TUBE TP SCH ×2 (08:48→20:03)
[2021-11-20] MEDS: Acyclovir 200 MG CAPSULE PO SCH ×2 (08:48→20:03)
[2021-11-20] MEDS: allopurinoL 300 MG TABLET PO SCH (08:51)
[2021-11-20] MEDS: Azithromycin 500 MG in 0.9 % Sodium Chloride 250 ML IVPB SCH (08:52)
[2021-11-20] MEDS: Budesonide/Formoterol 80/4.5 1 PUFF INH IH SCH ×2 (10:18→21:10)
[2021-11-20] MEDS ORDERED: *HR* Enoxaparin 40 MG/0.4 ML SYRINGE SQ ONE (15:01)
[2021-11-20] MEDS: Acetaminophen 325 MG TABLET PO PRN (20:03)
[2021-11-20] MEDS: Melatonin 3 MG TABLET PO PRN (20:03)
[2021-11-21 02:08] LABS: Hematocrit 30.8 % (35.3-44.9); Hemoglobin 9.2 g/dL (11.5-15.4); Mean Corpuscular HGB Conc 29.9 g/dL (31.6-35.5); Mean Corpuscular Hemoglobin 29.9 pg (28.0-33.3); Mean Platelet Volume 10.4 fL (9.4-12.4); Nucleated Red Blood Cells 0.5 /100 WBC (0); Platelet Count 269 K/mcL (140-400); Red Blood Count 3.08 M/mcL (3.82-4.97); Red Cell Distribution Width 21.3 % (11.5-14.5); White Blood Count 17.6 K/mcL (4.3-11.1)
[2021-11-21 02:57] LABS: Lymphocytes # 1.1 K/mcL (0.6-4.6); Monocytes # 0.7 K/mcL (0.0-1.3); Neutrophils # 15.8 K/mcL (1.6-8.9); Toxic Granulation Present (Not Present)
[2021-11-21 02:58] LABS: Anisocytosis 2+ (Not Present); Platelet Estimate Normal (Normal); Smudge Cells Present (Not Present)
[2021-11-21] MEDS: Ipratropium/Albuterol Neb 3 ML IH SCH ×3 (04:00→15:37)
[2021-11-21 04:01] VITALS: O2SAT 100
[2021-11-21] MEDS ORDERED: *HR* Enoxaparin 40 MG/0.4 ML SYRINGE SQ SCH (06:00)
[2021-11-21] MEDS: MethylPREDNISolone 40 MG/ML VIAL IVP SCH (07:04)
[2021-11-21] MEDS: Acyclovir 200 MG CAPSULE PO SCH (08:29)
[2021-11-21] MEDS: allopurinoL 300 MG TABLET PO SCH (08:29)
[2021-11-21] MEDS: Azithromycin 500 MG in 0.9 % Sodium Chloride 250 ML IVPB SCH (08:30)
[2021-11-21] MEDS: Nystatin Cream 15 GM TUBE TP SCH (08:39)
[2021-11-21] MEDS: Budesonide/Formoterol 80/4.5 1 PUFF INH IH SCH (10:27)
[2021-11-21 11:38] VITALS: BP 111/77; PULSE 117; TEMP 97.9
[2021-11-22] MEDS ORDERED: predniSONE 20 MG TABLET PO SCH (09:00)
== END 2021-11-21 16:38 | disposition home or self-care (01) | DRG 871 ==
LOC: 2ANU → SUATTDRO 19:39
PROVIDERS: ADMIT General Practice; ATTEND Internal Medicine